=== PATIENT | female | born 1965 | race Caucasian/White ===

== ENCOUNTER 2018-12-11 14:13 | Outpatient (CLI) | payer OTHER ==
[2018-12-11 15:29] LABS: BASOPHILS # (AUTO) 0.06 x10^3/uL (0-0.1); BASOPHILS % (AUTO) 1 % (0-1); EOSINOPHILS # (AUTO) 0.27 x10^3/uL (0-0.4); EOSINOPHILS % (AUTO) 3 % (1-7); LYMPHOCYTES # (AUTO) 2.71 x10^3/uL (1-3.4); LYMPHOCYTES % (AUTO) 33 % (22-44); MD NO; MEAN CORPUSCULAR HEMOGLOBIN 29.4 pg (27.0-34.8); MEAN CORPUSCULAR HGB CONC 32.5 g/dL (32.4-35.8); MEAN CORPUSCULAR VOLUME 90.3 fL (80-100); MEAN PLATELET VOLUME 8.9 fL (7.4-10.4); MONOCYTES # (AUTO) 0.54 x10^3/uL (0.2-0.8); MONOCYTES % (AUTO) 7 % (2-9); NEUTROPHILS # (AUTO) 4.71 x10^3/uL (1.8-6.8); NEUTROPHILS % (AUTO) 57 % (42-75); PLATELET COUNT 231 x10^3/uL (130-400); RED BLOOD COUNT 4.46 x10^6/uL (3.82-5.3); RED CELL DISTRIBUTION WIDTH 13.3 % (9.6-15.2)
[2018-12-11 15:31] LABS: MICROSCOPIC NOT IND
[2018-12-11 15:34] LABS: CULTURE INDICATED? NO
[2018-12-11 15:38] LABS: ALANINE AMINOTRANSFERASE 24 U/L (12-78); ALBUMIN 3.8 g/dL (3.4-5.0); ANION GAP 5 mmol/L (5-15); CALCIUM 8.4 mg/dL (8.5-10.1); CHLORIDE 109 mmol/L (98-107); CREATININE 0.82 mg/dL (0.55-1.02)
[2018-12-11 15:40] LABS: ALKALINE PHOSPHATASE 100 U/L (45-117); BILIRUBIN,TOTAL 0.2 mg/dL (0.2-1.0); TOTAL PROTEIN 7.1 g/dL (6.4-8.2)
[2018-12-11 15:48] LABS: INTERNATIONAL NORMALIZED RATIO 0.93 (0.93-1.1); PROTHROMBIN TIME 9.8 Seconds (9.6-11.5)
[2018-12-16] MEDS ORDERED: KETO15CR17 TP (11:41)
[2018-12-16] MEDS ORDERED: ACET-1757 PO (11:41)
[2018-12-16] MEDS ORDERED: LACT1CAP35 PO (11:41)
[2018-12-16] MEDS ORDERED: DICL100G25 TP (11:41)
[2018-12-16] MEDS ORDERED: [UNRECOGNIZED DRUG - REMARK] PO (11:41)
[2018-12-16] MEDS ORDERED: BUSP10TA PO (11:41)
[2018-12-16] MEDS ORDERED: RANI150T4 PO (11:41)
[2018-12-16] MEDS ORDERED: BACL-19 PO (11:41)
[2018-12-16] MEDS ORDERED: OMEP40CA6 PO (11:41)
[2018-12-16] MEDS ORDERED: ACET10DR5 EACH EAR (11:41)
[2018-12-16] MEDS ORDERED: POLY17PO5 PO (11:41)
[2018-12-16] MEDS ORDERED: BISA5TAB5 PO (11:41)
[2018-12-16] MEDS ORDERED: QUET25TA70 PO (11:41)
[2018-12-16] MEDS ORDERED: TRAZ-137 PO (11:41)
[2018-12-16] MEDS ORDERED: DIAZ2TAB3 PO (11:43)
[2018-12-23] MEDS ORDERED: LEVO25TA4 PO (08:36)
[2018-12-25] MEDS ORDERED: CYCL-259 PO (10:05)
[2018-12-25] MEDS ORDERED: METH4TAB2 PO (10:06)
[2018-12-25] MEDS ORDERED: HYDR-36 PO (10:07)
[2018-12-25] MEDS ORDERED: BUTA-177 PO (10:10)
== END 2018-12-11 23:59 | disposition home or self-care (01) ==
LOC: STAR 14:13
PROVIDERS: ATTEND Neurological Surgery
DX: Z01.818 Encounter for other preprocedural examination (principal); M48.02 Spinal stenosis, cervical region
CPT/HCPCS: 36415; 71046; 80053; 81003; 85025; 85610; 85730; 93005

== ENCOUNTER 2018-12-21 10:19 | Emergency (ER) | payer MEDICAID, OTHER ==
[~2018-12-21] VITALS: Ht 154.9 cm; Wt 95.0 kg
[2018-12-21 13:31] VITALS: BP 156/75
== END 2018-12-21 13:55 | disposition home or self-care (01) ==
LOC: ED 11:32
DX: M62.838 Other muscle spasm (principal); M54.12 Radiculopathy, cervical region; G40.89 Other seizures
CPT/HCPCS: 72125; 96372; 99284; J1170; J2550; Q0162

== ENCOUNTER 2018-12-23 07:48 | Inpatient (IN) | payer OTHER ==
[~2018-12-23] VITALS: Ht 154.9 cm; Wt 102.8 kg
[2018-12-25 07:40] VITALS: BP 115/73
== END 2018-12-25 12:10 | disposition home health service (06) | DRG 472 ==
LOC: ORIP 07:48 → 4NOR 13:15 → DCLOUNGE 12-25 11:40
PROVIDERS: ADMIT Neurological Surgery; ATTEND Neurological Surgery
PROC: 0RG20A0 Fusion of 2 or more Cervical Vertebral Joints with Interbody Fusion Device, Anterior Approach, Anterior Column, Open Approach (ICD-10-PCS; principal; 2018-12-23)
PROC: 0RB30ZZ Excision of Cervical Vertebral Disc, Open Approach (ICD-10-PCS; 2018-12-23)
DX: M48.02 Spinal stenosis, cervical region (principal); Z68.41 Body mass index [BMI] 40.0-44.9, adult; E66.01 Morbid (severe) obesity due to excess calories; M50.123 Cervical disc disorder at C6-C7 level with radiculopathy; M47.22 Other spondylosis with radiculopathy, cervical region; H40.9 Unspecified glaucoma; J45.909 Unspecified asthma, uncomplicated; K21.9 Gastro-esophageal reflux disease without esophagitis; M19.90 Unspecified osteoarthritis, unspecified site; G43.909 Migraine, unspecified, not intractable, without status migrainosus; G40.909 Epilepsy, unspecified, not intractable, without status epilepticus; F32.9 Major depressive disorder, single episode, unspecified; F41.9 Anxiety disorder, unspecified; G47.33 Obstructive sleep apnea (adult) (pediatric); E03.9 Hypothyroidism, unspecified; R13.10 Dysphagia, unspecified; G89.29 Other chronic pain; I10 Essential (primary) hypertension; Z88.2 Allergy status to sulfonamides
CPT/HCPCS: 72040; 72125; C1713; G0378; J0690; J1100; J1170; J1885; J2250; J2405; J2704; J2710; J3010; C1762; J0330; J1200; J2800; J3480; J7120